=== PATIENT | female | born 1985 | race Caucasian/White ===

== ENCOUNTER 2017-07-13 17:56 | Emergency (ER) | payer SELFPAY ==
[2017-07-13 18:18] VITALS: BP 111/72
[2017-07-13] MEDS ORDERED: Amoxicillin/Clavulanate TAB* 875 MG PO ONE (18:39)
--- NOTE | 2017-07-13 20:39 | UC ---
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 TETANUS TWO YEARS AGO. WOUND CLEANED PRIOR TO ARRIVAL. NO FEVER. ABRASION ON RIGHT FOREARM. - History of Current Complaint Chief Complaint: UCBiteInjury Stated Complaint: HUMAN BITE RIGHT FOREARM Time Seen by Provider: 07/13/17 18:13 Hx Obtained From: Patient Hx Last Menstrual Period: unknown, implanon Severity Currently: Mild Severity Initially: Mild Pain Intensity: 0 Pain Scale Used: 0-10 Numeric Onset/Duration: Sudden Onset, Lasting Hours Type of Bite: Human Has Animal Been Immunized?: Yes Character: Abrasion/Laceration Aggravating Factor(s): Nothing Alleviating Factor(s): Nothing Associated Signs And Symptoms: Negative: Fever, Erythema, Drainage, Swelling, Lymphadenopathy Hx of Bite: Unprovoked Animal Available for Observation: Yes - Allergies/Home Medications Allergies/Adverse Reactions: Allergies Allergy/AdvReac Type Severity Reaction Status Date / Time Acetaminophen [From Vicodin] Allergy Itching Verified 07/13/17 18:19 Hydrocodone [From Vicodin] Allergy Itching Verified 07/13/17 18:19 dust/grass/mold Allergy Nausea Uncoded 07/13/17 18:19 Home Medications: Home Medications Etonogestrel IMPLANT(NF) [Implanon (NF)-not available] 68 mg IMPLANT ONCE [History Confirmed 07/13/17] Sertraline* [Zoloft*] 50 mg PO DAILY 07/13/17 [History Confirmed 07/13/17] PMH/Surg Hx/FS Hx/Imm Hx Previously Healthy: Yes - Surgical History Surgical History: None - Family History Known Family History: Negative: Blood Disorder - Social History Occupation: Employed Full-time Lives: With Family Alcohol Use: Rare Substance Use Type: None Smoking Status (MU): Heavy Every Day Tobacco Smoker Amount Used/How Often: 6-7 cigs per day Cessation Counseling: Patient Advised to Stop - Immunization History Most Recent Influenza Vaccination: no Review of Systems Constitutional: Negative Skin: Other - ABRASION RIGHT FOREARM Eyes: Negative ENT: Negative Respiratory: Negative Cardiovascular: Negative Gastrointestinal: Negative Genitourinary: Negative Motor: Negative Neurovascular: Negative Musculoskeletal: Negative Neurological: Negative Psychological: Negative Is Patient Immunocompromised?: No All Other Systems Reviewed And Are Negative: Yes Physical Exam Triage Information Reviewed: Yes Appearance: Well-Appearing, No Pain Distress, Well-Nourished Vital Signs: Initial Vital Signs Temp 98 F 07/13/17 18:09 Pulse 84 07/13/17 18:09 Resp 16 07/13/17 18:09 BP 111/72 07/13/17 18:09 Pulse Ox 100 07/13/17 18:09 Vital Signs Reviewed: Yes Eye Exam: Normal ENT Exam: Normal ENT: Positive: Normal ENT inspection, TMs normal Dental Exam: Normal Neck exam: Normal Respiratory Exam: Normal Respiratory: Positive: Chest non-tender, Lungs clear, Normal breath sounds, No respiratory distress Cardiovascular Exam: Normal Cardiovascular: Positive: RRR, No Murmur, Pulses Normal Abdominal Exam: Normal Musculoskeletal Exam: Normal Musculoskeletal: Positive: Strength Intact, ROM Intact Neurological Exam: Normal Psychological Exam: Normal Skin: Positive: Other - ABRASION RIGHT FOREARM Bite Injury Course/Dx - Differential Dx/Diagnosis Differential Diagnosis/HQI/PQRI: Cellulitis, Hepatitis B Exposure, HIV Exposure , Rabies Exposure, Superficial Infection, Deep Space Infection Provider Diagnoses: RIGHT FOREARM ABRASION/HUMAN BITE Discharge - Discharge Plan Condition: Stable Disposition: HOME Prescriptions: Amoxicillin/Clavulanate TAB* [Augmentin TAB 875*] 875 mg PO BID #20 tab Patient Education Materials: Human Bite (ED) Referrals: [facility]IAN REFERR[facility] [Outside] No Primary Care Phys,NOPCP [Primary Care Provider] -
== END 2017-07-13 18:55 | disposition home or self-care (01) ==
LOC: UCCORT 17:56
DX: S50.811A Abrasion of right forearm, initial encounter (principal); W50.3XXA Accidental bite by another person, initial encounter; Y93.9 Activity, unspecified; Y92.129 Unspecified place in nursing home as the place of occurrence of the external cause; F17.210 Nicotine dependence, cigarettes, uncomplicated
CPT/HCPCS: 99203; A9270-GY; G0463

== ENCOUNTER 2017-08-02 15:26 | Emergency (ER) | payer OTHER ==
[2017-08-02 15:41] VITALS: BP 132/55
--- NOTE | 2017-08-02 16:58 | UC ---
Respiratory Complaint HPI - HPI Summary HPI Summary: Patient presents to the with CC of loss of voice, congestion, cough, fatigue and sore throat. She denies any fevers, sweats or chills. She was recently treated for scabies through her work. She does not feel it is related. Symptoms have been present x 1 week and have remained constant. Denies SOB or chest pain. She has not tried any medications. She is requesting a physician note for work. Denies tick bites, rashes or exposure to strep. - History of Current Complaint Chief Complaint: UCRespiratory Stated Complaint: THROAT,ACHY,TIRED Time Seen by Provider: 08/02/17 15:31 Hx Obtained From: Patient Hx Last Menstrual Period: HAS THE IMPLAMON, DOES NOT HAVE REGUALR PERIODS ?: No Onset/Duration: Gradual Onset Severity Initially: Moderate Severity Currently: Moderate Pain Intensity: 4 Pain Scale Used: 0-10 Numeric Character: Cough: Nonproductive Associated Signs And Symptoms: Positive: URI, Nasal Congestion, Hoarseness, Sinus Discomfort - Risk Factors Pulmonary Embolism Risk Factors: Negative Cardiac Risk Factors: Negative Pseudomonas Risk Factors: Negative Tuberculosis Risk Factors: Negative - Allergies/Home Medications Allergies/Adverse Reactions: Allergies Allergy/AdvReac Type Severity Reaction Status Date / Time Hydrocodone [From Vicodin] Allergy Itching Verified 08/02/17 15:33 dust/grass/mold Allergy Nausea Uncoded 08/02/17 15:33 PMH/Surg Hx/FS Hx/Imm Hx Previously Healthy: Yes - Surgical History Surgical History: None - Family History Known Family History: Negative: Blood Disorder - Social History Occupation: Employed Full-time Lives: With Family Alcohol Use: None Substance Use Type: None Smoking Status (MU): Light Every Day Tobacco Smoker Type: Cigarettes Amount Used/How Often: 6-7 cigs per day Household Exposure Type: Cigarettes - Immunization History Most Recent Influenza Vaccination: NOT IN 2017 Review of Systems Constitutional: Fatigue Skin: Negative ENT: Negative Respiratory: Cough Cardiovascular: Negative Genitourinary: Negative Motor: Negative Neurovascular: Negative Musculoskeletal: Negative Neurological: Headache Is Patient Immunocompromised?: No All Other Systems Reviewed And Are Negative: Yes Physical Exam Triage Information Reviewed: Yes Appearance: Well-Appearing, No Pain Distress, Well-Nourished Vital Signs: Initial Vital Signs Temp 98.7 F 08/02/17 15:34 Pulse 81 08/02/17 15:34 Resp 20 08/02/17 15:34 BP 132/55 08/02/17 15:34 Pulse Ox 98 08/02/17 15:34 Vital Signs Reviewed: Yes Eye Exam: Normal Eyes: Positive: Conjunctiva Clear ENT Exam: Normal ENT: Positive: Normal ENT inspection Neck exam: Normal Neck: Positive: Supple, Nontender, No Lymphadenopathy Respiratory Exam: Normal Respiratory: Positive: Chest non-tender, Lungs clear, Normal breath sounds, No respiratory distress Cardiovascular Exam: Normal Cardiovascular: Positive: RRR, Brisk Capillary Refill Musculoskeletal Exam: Normal Musculoskeletal: Positive: Strength Intact Neurological Exam: Normal Neurological: Positive: Alert Psychological: Positive: Normal Response To Family, Age Appropriate Behavior Skin Exam: Normal Diagnostic Evaluation - Laboratory O2 Sat by Pulse Oximetry: 98 Respiratory Course/Dx - Course Course Of Treatment: Patient is evaluated for fatiVS stable. Lungs CTA, no pharyngeal erythema and no LAD on physical exam. laly, cough and congestion x 1 week. Discussed results with patient and state this is likely viral which will need to improve with supportive treatments. She agrees and is OK with discharge. She is given a note for work. - Differential Dx/Diagnosis Differential Diagnosis/HQI/PQRI: Bronchitis, Lower Resp Infection, Sinusitis Provider Diagnoses: Upper Respiratory Infection Discharge - Discharge Plan Condition: Stable Disposition: HOME Patient Education Materials: Upper Respiratory Infection (ED) Forms: *Work Release Referrals: No Primary Care Phys,NOPCP [Primary Care Provider] - Additional Instructions: Humidifier in the home will help. Tylenol for discomfort. Take all medications as directed. Symptoms should resolve in 1-3 weeks. If symptoms become worse, please come back to or go to the ED. Honey and lemon hot tea Rest plenty of fluids.
== END 2017-08-02 16:05 | disposition home or self-care (01) ==
LOC: UCCORT 15:26
DX: J06.9 Acute upper respiratory infection, unspecified (principal); J30.1 Allergic rhinitis due to pollen; F17.210 Nicotine dependence, cigarettes, uncomplicated; Z88.6 Allergy status to analgesic agent
CPT/HCPCS: 99211; G0463

== ENCOUNTER → 2019-05-10 10:23 | Emergency (ER) | payer SELFPAY | END | disposition home or self-care (01) | LOC: UCCORT 10:23 | DX: Z02.1 Encounter for pre-employment examination (principal) ==

== ENCOUNTER 2019-07-12 11:09 | Emergency (ER) | payer OTHER ==
[2019-07-12 11:57] VITALS: BP 120/78
[2019-07-12] MEDS ORDERED: Albuterol/Ipratropium NEB.SOL* Albuterol 2.5 MG/Ipratropium 0.5 MG 3 ML INH ONE (12:01)
--- NOTE | 2019-07-12 12:12 | ED ---
Respiratory - HPI Summary HPI Summary: 34 yr old female with the complaint of cough. Onset yesterday, productive of yellow sputum, associated spastic coughing episodes. She denies runny nose or sore throat. No fever. She is a smoker. Symptoms are moderate. - History of Current Complaint Chief Complaint: UCRespiratory Stated Complaint: DEEP COUGH Time Seen by Provider: 07/12/19 11:57 Pain Intensity: 6 - Allergy/Home Medications Allergies/Adverse Reactions: Allergies Allergy/AdvReac Type Severity Reaction Status Date / Time hydrocodone Allergy Itching Verified 07/12/19 11:51 Home Medications: Home Medications Escitalopram * [Lexapro *] 20 mg PO QPM 07/12/19 [History Confirmed 07/12/19] hydrOXYzine HCL TAB* [Atarax TAB 50 MG *] 50 mg PO QAM 07/12/19 [History Confirmed 07/12/19] PMH/Surg Hx/FS Hx/Imm Hx Infectious Disease History: No Infectious Disease History: Denies: Traveled Outside the [place] in Last 30 Days - Family History Known Family History: Positive: None Negative: Blood Disorder - Social History Occupation: Employed Part-time, Student Alcohol Use: None Substance Use Type: Reports: None Smoking Status (MU): Light Every Day Tobacco Smoker Type: Cigarettes Amount Used/How Often: 1/3 PPD Length of Time of Smoking/Using Tobacco: Since Age 25 Review of Systems Negative: Fever, Chills Positive: Cough Positive: Diarrhea All Other Systems Reviewed And Are Negative: Yes Physical Exam Triage Information Reviewed: Yes Vital Signs On Initial Exam: Initial Vitals Temp Pulse Resp BP Pulse Ox 98.5 F 94 18 120/78 97 07/12/19 11:49 07/12/19 11:49 07/12/19 11:49 07/12/19 11:49 07/12/19 11:49 Vital Signs Reviewed: Yes Appearance: Positive: Well-Appearing, No Pain Distress, Obese Skin: Positive: Warm, Skin Color Reflects Adequate Perfusion Head/Face: Positive: Normal Head/Face Inspection Eyes: Positive: EOMI ENT: Positive: Normal ENT inspection, Pharyngeal erythema, Nasal drainage Neck: Positive: Nontender Respiratory/Lung Sounds: Positive: Clear to Auscultation, Breath Sounds Present Cardiovascular: Positive: RRR. Negative: Murmur Abdomen Description: Negative: Distended Musculoskeletal: Positive: Strength/ROM Intact Neurological: Positive: Sensory/Motor Intact, Alert, Oriented to Person Place, Time, CN Intact II-III, Normal Gait, Speech Normal Psychiatric: Positive: Normal Diagnostics - Vital Signs Vital Signs Temp Pulse Resp BP Pulse Ox 07/12/19 11:49 98.5 F 94 18 120/78 97 - Laboratory Lab Statement: Any lab studies that have been ordered have been reviewed, and results considered in the medical decision making process. - Radiology chest pa lat Radiology Interpretation Completed By: Radiologist - nad Re-Evaluation - Re-Evaluation First Eval Re-Evaluation Time: 12:29 Change: Improved Comment: she reports the cough has loosened up and she feels better. Disposition - Course Course Of Treatment: 34 yr old with cough. xray neg. DC home on prednisone and albuterol mdi. - Diagnoses Provider Diagnoses: Bronchospasm, acute Discharge ED - Sign-Out/Discharge Documenting (check all that apply): Patient Departure All imaging exams completed and their final reports reviewed: No Studies - Discharge Plan Condition: Good Disposition: HOME Prescriptions: Albuterol HFA INHALER* [Ventolin HFA Inhaler*] 1 - 2 puff INH Q6H PRN #1 mdi PRN Reason: Cough predniSONE TAB* [Deltasone 20 MG TAB*] 40 mg PO DAILY #8 tab Patient Education Materials: Bronchospasm (ED) Forms: *Work Release Referrals: No Primary Care Phys,NOPCP [Primary Care Provider] - [facility] [place] [facility] [Outside] - Billing Disposition and Condition Condition: GOOD Disposition: Home
== END 2019-07-12 13:13 | disposition home or self-care (01) ==
LOC: UCCORT 11:09
DX: J98.01 Acute bronchospasm (principal); R19.7 Diarrhea, unspecified; Z88.5 Allergy status to narcotic agent; F17.210 Nicotine dependence, cigarettes, uncomplicated
CPT/HCPCS: 71046; 99212; A9270-GY; G0463